=== PATIENT | female | born 1965 | race Caucasian/White ===

== ENCOUNTER 2021-02-24 04:56 | Inpatient (IN) ==
--- NOTE | 2021-01-21 08:53 | PAT Medication Instructions ---
Medication Instructions Date of Service January 21, 2021 Home Medications cholecalciferol (vitamin D3) [Vitamin D3] 50 mcg PO QAM lisinopril-hydrochlorothiazide 1 tab PO QAM naproxen sodium [Aleve] 440 mg PO BID PRN turmeric-turmeric ext-pepper 2 cap PO QAM ASK your surgeon for instructions naproxen sodium [Aleve] 440 mg PO BID PRN STOP taking 2 weeks before surgery (or as soon as possible if surgery is within 2 weeks) turmeric-turmeric ext-pepper 2 cap PO QAM DO NOT take the morning of surgery cholecalciferol (vitamin D3) [Vitamin D3] 50 mcg PO QAM lisinopril-hydrochlorothiazide 1 tab PO QAM Other Notes If you have any questions please call us at [phone] or [phone] or [phone] or [phone]
--- NOTE | 2021-01-25 11:55 | Anesthesiology Consultation ---
Date of Service January 25, 2021 Assessment & Plan (1) Encounter for pre-operative examination: COVID screening: Per assessment on 01/25: Travel screen negative, no known COVID- 19 positive contacts or current COVID-19 related symptoms. Surgeon arranging preop COVID testing (scheduled 02/19; [facility]). Awaiting results. Chart Review Chart Review: Acceptable Risk for Surgery and Patient seen in Pre Admission T esting Teaching & Discussion Pre-Anesthesia Teaching/Discussion Notes: Instructed NPO after midnight before surgery,except medications with 15 cc of water. Medication instructions provided according to the PAT guidelines. History Surgery Operation Date: 02/24/21 07:15 Proposed Procedures p Left Total Knee Arthroplasty - Yanick White MD Height/Weight Height: 5 ft 2.5 in Weight: 107.8 kg Allergies Allergy/AdvReac Type Severity Reaction Status Date / Time No Known Allergies Allergy Verified 01/20/21 11:19 Medications Home Medications Medication Instructions Recorded Confirmed Last Taken cholecalciferol (vitamin D3) 50 mcg PO QAM 01/20/21 01/20/21 Unknown [Vitamin D3] lisinopril-hydrochlorothiazide 1 tab PO QAM 01/20/21 01/20/21 Unknown naproxen sodium [Aleve] 440 mg PO BID PRN 01/20/21 01/20/21 Unknown turmeric-turmeric ext-pepper 2 cap PO QAM 01/20/21 01/20/21 Unknown Past Medical History Medical History Hyperlipidemia Borderline Hypertension Morbid obesity Exercise / Class Metabolic Activity II 4-5 Yardwork/Stairs/Walk up hill Past Family History Family History Brother Family history of diabetes mellitus Mother Family history of diabetes mellitus Family hx of colon cancer Past Surgical History Surgical History History of colonoscopy History of tooth extraction WTE Past Anesthesia History No Hx of Anesthesia Complications Twin- "slow to wake" History of PONV No Hx of PONV and No Hx of Motion Sickness Social History Smoking Status: Former smoker Do You Dip or Chew Tobacco: No Smoking End Date: 2006 Hx Alcohol Use: Yes Alcohol type: beer, wine and hard liquor alcohol intake frequency: a few times a month Hx Substance Use: No Review of Systems + snoring (when allergies worsening). Rare witnessed apnea events by . Patient denies chest pain, shortness of breath, dyspnea on exertion, fever, chills, cough, wheezing, palpitations. Physical Exam Vital Signs VITALS BP 121/78 P 77 TEMP 98.5 SP02 96%RA RESP 18 PHYSICAL Full cervical extension range of motion. Full TMJ range of motion. TMD 4 finger breaths Mallampati Score 1 Dentition: intact Lungs: clear throughout to auscultation Cardiac: regular rate and rhythm, no murmurs noted Spine: normal Carotid arteries: negative bruit Extremities: no edema Very short neck Testing Laboratory Results 01/25/21 12:16 01/25/21 12:16 PT 10.1 Seconds (9.0-12.0) 01/25/21 12:16 INR 1.0 (0.9-1.1) 01/25/21 12:16 APTT 24.2 Seconds (21.0-31.0) 01/25/21 12:16 Hemoglobin A1c 5.7 % (4.5-5.6) H 01/25/21 12:16 Urine Color Yellow 01/25/21 12:16 Urine Appearance Clear (Clear) 01/25/21 12:16 Urine pH 5.0 (4.5-7.5) 01/25/21 12:16 Ur Specific [place] 1.018 (1.000-1.030) 01/25/21 12:16 Urine Protein Negative (Negative) 01/25/21 12:16 Urine Glucose (UA) Negative (Negative) 01/25/21 12:16 Urine Ketones Negative (Negative) 01/25/21 12:16 Urine Nitrite Negative (Negative) 01/25/21 12:16 Ur Leukocyte Esterase Negative (Negative) 01/25/21 12:16 Blood Type A Positive 01/25/21 12:16 Antibody Screen NEGATIVE 01/25/21 12:16 Electrocardiogram Date: 01/25/21 Findings: + NSR @ (74) Chest X-Ray Date: 01/25/21 FINDINGS: Lung volumes are normal. Lungs are clear. There is no pneumothorax or pleural effusion. Cardiac size is normal. Mediastinal contours are normal. There is no evidence for pulmonary edema. There is slight elevation/eventration of the right hemidiaphragm. IMPRESSION: No acute cardiopulmonary findings.
[2021-01-25 12:41] LABS: Appearance Urine Clear (Clear); Basophils # (auto) 0.04 K/uL (0-0.2); Basophils % (auto) 0.5 %; Bilirubin Urine Negative (Negative); Blood Urine Negative (Negative); Color Urine Yellow; Eosinophils # (auto) 0.31 K/uL (0-0.5); Eosinophils % (auto) 3.9 %; Glucose Urine UA Negative (Negative); Hematocrit (blood only) 38.8 % (37-47); Immature Granulocytes # (auto) 0.03 K/uL (0.00-0.02); Immature Granulocytes % (auto) 0.4 %; Ketones Urine Negative (Negative); Leukocyte Esterase Urine Negative (Negative); Lymphocytes # (auto) 2.13 K/uL (1.2-3.4); Lymphocytes % (auto) 26.7 %; Mean Corpuscular Hgb Conc 33.5 g/dL (32-36); Mean Corpuscular Volume 89.6 fL (80-100); Mean Platelet Volume 9.6 fL (7.4-10.4); Monocytes % (auto) 6.3 %; Neutrophils # (auto) 4.98 K/uL (1.4-6.5); Neutrophils % (auto) 62.2 %; Nitrite Urine Negative (Negative); Platelet Count 390 K/uL (130-400); Protein Urine Negative (Negative); RDW Coefficient of Variation 12.8 % (11.5-14.5); RDW Standard Deviation 41.8 fL (36.4-46.3); Red Blood Count 4.33 M/uL (4.2-5.4); Specific Gravity Urine 1.018 (1.000-1.030); Urobilinogen Urine Negative (Negative); White Blood Count 7.99 K/uL (4.8-10.8)
--- NOTE | 2021-01-25 12:47 | XRay Report ---
XR chest Pre-admission PA/Lat CLINICAL HISTORY: Preoperative evaluation. COMPARISON STUDY: No previous studies for comparison. FINDINGS: Lung volumes are normal. Lungs are clear. There is no pneumothorax or pleural effusion. Car diac size is normal. Mediastinal contours are normal. There is no evidence for pulmonary edema. There is slight elevation/eventration of the right hemidiaphragm. IMPRESSION: No acute cardiopulmonary findings. ACT 112: Negative or not required by law. Electronically signed by: Demarcus Rivas M.D. 01/25/2021 12:46 PM
[2021-01-25 12:51] LABS: Partial Thromboplastin Ratio 0.9; Partial Thromboplastin Time 24.2 Seconds (21.0-31.0); Prothrombin Time 10.1 Seconds (9.0-12.0)
[2021-01-25 13:35] LABS: Estimated Average Glucose 117 mg/dl; Hemoglobin A1C 5.7 % (4.5-5.6)
[2021-01-25 15:32] LABS: Albumin Level 3.8 gm/dl (3.4-5.0); BUN Creatinine Ratio 27.7 (10-20); Calcium 9.1 mg/dl (8.5-10.1); Creatinine Clr Calc Pharmacy 114.9 ml/min; Est GFR (African American) 115.4; Est GFR (Non-African American) 99.6; Potassium 4.5 mmol/L (3.5-5.1)
--- NOTE | 2021-01-26 05:58 | Electrocardiogram Report ---
Test Reason : Blood Pressure : / mmHG Vent. Rate : 074 BPM Atrial Rate : 074 BPM P-R Int : 164 ms QRS Dur : 084 ms QT Int : 378 ms P-R-T Axes : 050 073 064 degrees QTc Int : 419 ms Normal sinus rhythm Normal ECG No previous ECGs available Confirmed by Rob Tierney ([id number]) on 01/26/2021 5:57:39 AM Referred By: Yanick White Confirmed By:Rob Tierney
--- NOTE | 2021-02-22 21:34 | History & Physical Report ---
Date of Service February 22, 2021 Assessment & Plan (1) Primary osteoarthritis of left knee: Treatment options discussed with patient. She has failed conservative measures as above. She would like to proceed with surgical management. Risks, benefits and alternatives to surgery including but not limited to infection, DVT, pain, stiffness, need for revision surgery, damage to blood vessels, damage to nerves, PE, , were discussed with the patient and they wish to proceed. Plan for left total knee arthroplasty at [facility] on 02/24/21. Will plan on ASA 81mg BID x 1 mo for DVT prophylaxis. Will plan on OPPT post discharge. All questions answered. F/u post operatively. History of Present Illness Chief Complaint: Left knee pain Primary Care Provider: Aayush Amado 55 year old female with PMHx significant for HTN presents with ongoing left knee pain. Pain interfering with her daily activities. She has severe arthritic change left knee. She has failed conservative management including cortisone and viscosupplementation, exercise program, anti-inflammatories. She would like to proceed with knee replacement. Patient denies headaches, sweats, fevers, chills, double vision, blurred vision, cough, sore throat, dysphagia, chest pain, sob, wheezing, n/v/d/c, numbness, tingling, fatigue, urinary symptoms, mood disorders. ROS positive for left knee pain and stiffness. Allergies Allergy/AdvReac Type Severity Reaction Status Date / Time No Known Allergies Allergy Verified 01/20/21 11:19 Home Medications Medication Instructions Recorded Confirmed Type cholecalciferol (vitamin D3) 50 mcg PO QAM 01/20/21 01/20/21 History [Vitamin D3] lisinopril-hydrochlorothiazide 1 tab PO QAM 01/20/21 01/20/21 History naproxen sodium [Aleve] 440 mg PO BID PRN 01/20/21 01/20/21 History turmeric-turmeric ext-pepper 2 cap PO QAM 01/20/21 01/20/21 History Past Med/Surg History Medical History Hyperlipidemia Borderline Hypertension Morbid obesity Surgical History History of colonoscopy History of tooth extraction WTE Family History Brother Family history of diabetes mellitus Mother Family history of diabetes mellitus Family hx of colon cancer Social History Smoking Status: Former smoker Smoking End Date: Quit 2006; Second Hand Exposure: No; Do You Dip or Chew Tobacco: No; Hx Alcohol Use: Yes Alcohol type: beer, wine and hard liquor Hx Substance Use: No Preferred Language: Japanese Communication Ability: Effective 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 Beliefs That Will Affect Care: None Current Living Situation: Spouse Other Information That Helps Us Care for You: No Feels Safe at Home: Yes Safety Concerns: Feels Safe At This Time Assistive Devices: Glasses Review of Systems All systems reviewed & are unremarkable except as noted in HPI & below Physical Exam Constitutional: well developed and well nourished; no acute distress Eyes: PERRL, conjunctivae normal, anicteric sclerae ENMT: external ear and nose normal, oropharynx normal Neck: trachea midline, no thyromegaly Respiratory: normal respiratory effort, lungs clear to auscultation Cardiovascular: RRR, no murmur, no edema Musculoskeletal: Left knee: Tenderness medial compartment and medial patellar facet with mild effusion. Painful ROM, ROM 10-100 degrees. Varus alignment. Stable to valgus and varus stress. Positive Joan's. Skin: no rashes, warm and dry Neurologic: patellar DTR's 2+ bilat, sensation intact Psychiatric: A+Ox3, euthymic affect Results & Data ([facility]) Laboratory Results Lab Results 01/25/21 01/25/21 01/25/21 Range/Units 12:16 12:16 12:16 WBC 7.99 (4.8-10.8) K/uL RBC 4.33 (4.2-5.4) M/uL Hgb 13.0 (12.0-16.0) g/dL Hct 38.8 (37-47) % MCV 89.6 (80-100) fL MCH 30.0 (25-34) pg MCHC 33.5 (32-36) g/dL RDW Std Deviation 41.8 (36.4-46.3) fL RDW Coeff of Brooke 12.8 (11.5-14.5) % Plt Count 390 (130-400) K/uL MPV 9.6 (7.4-10.4) fL Immature Gran % (Auto) 0.4 % Neut % (Auto) 62.2 % Lymph % (Auto) 26.7 % [place] % (Auto) 6.3 % Eos % (Auto) 3.9 % Baso % (Auto) 0.5 % Neut # (Auto) 4.98 (1.4-6.5) K/uL Lymph # (Auto) 2.13 (1.2-3.4) K/uL [place] # (Auto) 0.50 (0.11-0.59) K/uL Eos # (Auto) 0.31 (0-0.5) K/uL Baso # (Auto) 0.04 (0-0.2) K/uL Immature Gran # (Auto) 0.03 H (0.00-0.02) K/uL PT 10.1 (9.0-12.0) Seconds INR 1.0 (0.9-1.1) APTT 24.2 (21.0-31.0) Seconds PTT Ratio 0.9 Sodium (136-145) mmol/L Potassium (3.5-5.1) mmol/L Chloride (98-107) mmol/L Carbon Dioxide (21-32) mmol/L Anion Gap (3-11) BUN (7-18) mg/dl Creatinine (0.6-1.2) mg/dl Est Cr Clr Drug Dosing ml/min Est GFR ( Amer) Est GFR (Non-Af Amer) BUN/Creatinine Ratio (10-20) Glucose (70-99) mg/dl Estimat Average Glucose mg/dl Hemoglobin A1c (4.5-5.6) % Calcium (8.5-10.1) mg/dl Albumin (3.4-5.0) gm/dl Urine Color Urine Appearance (Clear) Urine pH (4.5-7.5) Ur Specific [place] (1.000-1.030) Urine Protein (Negative) Urine Glucose (UA) (Negative) Urine Ketones (Negative) Urine Blood (Negative) Urine Nitrite (Negative) Urine Bilirubin (Negative) Urine Urobilinogen (Negative) Ur Leukocyte Esterase (Negative) Blood Type A Positive Antibody Screen NEGATIVE 01/25/21 01/25/21 01/25/21 Range/Units 12:16 12:16 12:16 WBC (4.8-10.8) K/uL RBC (4.2-5.4) M/uL Hgb (12.0-16.0) g/dL Hct (37-47) % MCV (80-100) fL MCH (25-34) pg MCHC (32-36) g/dL RDW Std Deviation (36.4-46.3) fL RDW Coeff of Brooke (11.5-14.5) % Plt Count (130-400) K/uL MPV (7.4-10.4) fL Immature Gran % (Auto) % Neut % (Auto) % Lymph % (Auto) % [place] % (Auto) % Eos % (Auto) % Baso % (Auto) % Neut # (Auto) (1.4-6.5) K/uL Lymph # (Auto) (1.2-3.4) K/uL [place] # (Auto) (0.11-0.59) K/uL Eos # (Auto) (0-0.5) K/uL Baso # (Auto) (0-0.2) K/uL Immature Gran # (Auto) (0.00-0.02) K/uL PT (9.0-12.0) Seconds INR (0.9-1.1) APTT (21.0-31.0) Seconds PTT Ratio Sodium 139 (136-145) mmol/L Potassium 4.5 (3.5-5.1) mmol/L Chloride 105 (98-107) mmol/L Carbon Dioxide 30 (21-32) mmol/L Anion Gap 4.0 (3-11) BUN 18 (7-18) mg/dl Creatinine 0.63 (0.6-1.2) mg/dl Est Cr Clr Drug Dosing 114.9 ml/min Est GFR ( Amer) 115.4 Est GFR (Non-Af Amer) 99.6 BUN/Creatinine Ratio 27.7 H (10-20) Glucose 112 H (70-99) mg/dl Estimat Average Glucose 117 mg/dl Hemoglobin A1c 5.7 H (4.5-5.6) % Calcium 9.1 (8.5-10.1) mg/dl Albumin 3.8 (3.4-5.0) gm/dl Urine Color Yellow Urine Appearance Clear (Clear) Urine pH 5.0 (4.5-7.5) Ur Specific [place] 1.018 (1.000-1.030) Urine Protein Negative (Negative) Urine Glucose (UA) Negative (Negative) Urine Ketones Negative (Negative) Urine Blood Negative (Negative) Urine Nitrite Negative (Negative) Urine Bilirubin Negative (Negative) Urine Urobilinogen Negative (Negative) Ur Leukocyte Esterase Negative (Negative) Blood Type Antibody Screen Diagnostic Findings Left knee: Severe tricompartmental arthritic change with bone on bone medial compartment, subluxation of femur, bone loss medial compartment
[2021-02-24] MEDS ORDERED: TRANEXAMIC ACID 1,000 MG **IV Pre-op IV SCH (06:00)
[2021-02-24] MEDS ORDERED: GABAPENTIN 600 MG DOSE PO SCH (06:00)
[2021-02-24] MEDS ORDERED: dexAMETHasone 4 MG TAB PO SCH (06:00)
[2021-02-24] MEDS ORDERED: ceFAZolin 2000MG 2,000 MG/15 ML SYR IV SCH (06:00)
[2021-02-24] MEDS ORDERED: FAMOTIDINE 20 MG TAB PO SCH (06:00)
[2021-02-24] MEDS ORDERED: TRANEXAMIC ACID 1,000 MG **IV Intra-op IV SCH (06:00)
[2021-02-24] MEDS ORDERED: LR 500ML BOLUS, THEN 15ML/HR IV SCH (06:00)
[2021-02-24] MEDS ORDERED: ROPIVACAINE 0.5% HCL/PF 150 MG, BUPIVACAINE 0.75% MPF 20 ML, EPINEPHrine 30MG/30ML (OR ... INSTIL SCH (06:00)
[2021-02-24] MEDS ORDERED: METOCLOPRAMIDE HCL 10 MG TABLET PO SCH (06:00)
[2021-02-24] MEDS ORDERED: CeleBREX 200 MG CAP PO SCH (06:00)
[2021-02-24] MEDS ORDERED: ACETAMINOPHEN 500 MG TAB PO SCH (06:00)
[2021-02-24] MEDS ORDERED: ROPIVACAINE 0.5% 5 MG/ML 30 ML VIAL ONE (06:24)
[2021-02-24] MEDS ORDERED: BUPIVACAINE 0.5 % 5 MG/1 ML PF 10ML VIAL ONE (06:24)
[2021-02-24] MEDS ORDERED: EPINEPHrine INJ 1 MG/ML AMP ONE (06:24)
[2021-02-24] MEDS ORDERED: fentaNYL citrate 100 MCG/2 ML VIAL ONE (06:29)
[2021-02-24] MEDS ORDERED: MIDAZOLAM HCL 1 MG/ML 2ML VIAL ONE (06:29)
[2021-02-24] MEDS ORDERED: LIDOCAINE HCL 2% 2 ML VIAL/AMP(20MG/ML) INFIL ONE (06:29)
[2021-02-24] MEDS ORDERED: PROPOFOL IV EMULSION 10 MG/ML 20 ML VIAL IV ONE ×4 (06:29→09:31)
[2021-02-24] MEDS ORDERED: ORTHO JOINT ANESTHETIC ONE (06:32)
--- NOTE | 2021-02-24 06:50 | History & Physical Bridge Note ---
Date of Service February 24, 2021 History & Physical Bridge Note I have examined the patient, reviewed the History & Physical and in the interval since the performance of the History & Physical I have noted the following changes of clinical significance: no changes noted
[2021-02-24] MEDS ORDERED: ONDANSETRON INJ 2 MG/ML 2 ML VIAL ONE (07:23)
[2021-02-24] MEDS ORDERED: ePHEDrine sulfate 50 MG/ML AMP IV PRN (08:30)
[2021-02-24] MEDS ORDERED: ATROPINE SULFATE 0.1 MG/ML 10ML SYR IV PRN (08:30)
--- NOTE | 2021-02-24 10:04 | Post Operative Brief Note ---
Immediate Post Op Note v1 Date of Surgery February 24, 2021 Pre & Post Diagnosis Operation Date: 02/24/21 07:00 Pre-Op Diagnosis: Unilateral Primary Osteoarthritis, Left Knee, obesity BMI 42.7 Post-Op Diagnosis: Unilateral Primary Osteoarthritis, Left Knee, obesity BMI 42.7 I identified the patient and participated in the time-out.: Yes Procedure Operation Date: 02/24/21 07:00 Actual Procedures p Left Total Knee Arthroplasty(Left), lateral release, superficial wound VAC-, increased difficulty BMI 42.7 Yanick White MD Surgeon Yanick White MD Business Information Analyst Norm BONILLA Estimated Blood Loss 10 Findings Consistent with Post-Op Diagnosis Specimens Bone cuts Drains Hemovac Drain Anesthesia Type MAC Spinal Regional Complications none Disposition Accompanied Patient To Recovery: No Disposition: Recovery Room Overlapping Procedure I was immediately available: during the entire case.
--- NOTE | 2021-02-24 10:45 | Anesthesiology Progress Note ---
Date of Service February 24, 2021 Anesthesia Post Procedure Vital Signs Vital Signs: Temp Pulse Pulse Resp BP BP Pulse Ox 02/24/21 10:30 75 20 126/64 95 02/24/21 10:20 76 20 129/69 94 02/24/21 10:10 75 20 131/69 100 02/24/21 10:09 36.5 C 78 18 133/64 100 02/24/21 05:27 36.7 C 75 18 150/86 H 95 Pain Intensity Left Knee: Pain Intensity: 3 Transfer of Care Handoff Completed per policy Notes Mental Status: alert / awake / arousable Patient Amnestic to Procedure: Yes Nausea / Vomiting: adequately controlled Pain: adequately controlled Airway Patency, RR, SpO2: stable & adequate BP & HR: stable & adequate Hydration State: stable & adequate Neuraxial Anesthesia: was administered and sensory block is resolving Anesthetic Complications: no major complications apparent
--- NOTE | 2021-02-24 10:47 | XRay Report ---
XR knee LT 1 or 2V routine CLINICAL HISTORY: Postoperative evaluation. COMPARISON: None FINDINGS: Alignment of the total left knee arthroplasty is anatomic. There is no periprosthetic frac ture or unexpected radiopaque foreign body. There are drains and skin shante. A calcific/ossific den sity which projects medial to the medial femoral condyle is not acute. IMPRESSION: Expected findings following total left knee arthroplasty. ACT 112: Negative or not required by law. Electronically signed by: Demarcus Rivas M.D. 02/24/2021 10:45 AM
--- NOTE | 2021-02-24 11:00 | Operative Report ---
Post Operative Report Pre & Post Diagnosis Operation Date: 02/24/21 07:00 Pre-Op Diagnosis: Unilateral Primary Osteoarthritis, Left Knee, morbid obesity BMI 42.7 Post-Op Diagnosis: Unilateral Primary Osteoarthritis, Left Knee, morbid obesity BMI 42.7 I identified the patient and participated in the time-out.: Yes Procedure Operation Date: 02/24/21 07:00 Actual Procedures p Left Total Knee Arthroplasty(Left), lateral release, increased difficulty BMI 42.7, superficial wound VAC application- Yanick White MD Surgeon Yanick White MD Dining Service Worker Norm BONILLA Estimated Blood Loss 10 Findings Consistent with Post-Op Diagnosis Specimens Bone cuts Drains 2 Hemovac Anesthesia Type MAC Spinal Regional Complications none Disposition Accompanied Patient To Recovery: No Disposition: Recovery Room Indications 55-year female with of very severe osteoarthritis her left knee failed conservative management. Radiographs demonstrate she is a varus knee marked subluxation of the femur medial on the tibia with bone loss in the medial compartment. Description of Procedure Patient taken to the operating room the size under spinal MAC regional anesthesia. Patient was placed supine on the operating table. A pneumatic tourniquet was placed about the left obese upper thigh. The left lower extremity was prepped and draped in sterile fashion. Knee exam demonstrated 15 through 90 degrees range of motion with marked varus knee no pseudolaxity and very stiff knee. Patient also had an obese knee and upper thigh.. The leg was elevated exsanguinated with an Esmarch bandage and pneumatic tourniquet was raised to 350 millimeters of mercury. Skin incised sharply in longitudinal fashion. Subcutaneous flaps elevated. Incision was made through the medial retinaculum extending up in the mid third of the quadriceps tendon and down to the medial tibial tubercle. Intra-articular findings demonstrated very severe tricompartmental osteoarthritis [id number] in all compartments with complete stenosis of the notch and absent ACL chronic medial meniscus tear. There was significant bone loss with eburnated bone on the medial tibia with a posterior medial bone loss of the tibia.. The [employer] triathlon total knee arthroplasty system was used. To expose the knee the infrapatellar fat pad was resected. The anterior fat pad over the femur in the area of the anterior flange of the femoral component was resected. Lateral synovial bands release. The notch osteophytes were resected with a curved osteotome. This exposed the PCL which was released and later resected. The meniscal remnants were resected. There was a large osteophyte around the femur adjacent to the medial collateral ligament that was removed. Multiple loose bodies were removed. The femur was exposed. An intramedullary drill hole was made into the canal. A guide dannielle was placed. Distal femoral cutting guide was adjusted to resect a 5 degree valgus cut with 10 millimeters distal femur resected. The knee was extended and a subperiosteal peel lateral release was performed around the patella. Patella width was measured and width was reproduced using a freehand cut technique and a 33 x 9 symmetrical patella component. The 3 drill holes were made and the excess lateral facet was beveled off to prevent any impingement. Attention was taken back to the femur which was exposed with retractors and the femoral sizing guide was pinned in position. The drill holes were placed in 3 of external rotation to match epicondylar axis. Femur sized for a 5 component. The 4-in-1 cutting block was placed and then the anterior posterior and chamfer cuts are made. The tibia was then subluxed. The external tibial cutting guide was just to make a perpendicular cut to the long axis of the tibia right at the level of the most deficient bone loss side. A lamina tenant relations coordinator was used and the flexion extension gaps were balanced. This required medial posterior medial release small posterior lateral release all posterior osteophytes removed. More loose bodies were identified and resected. All meniscal remnants were resected. The tibia exposed and the trial tibial component size 4 was externally rotated in line with the tibial tubercle and pinned in position. The punch drill for stem was used. The notch cutting device was centered appropriately and the femoral notch cut was made. Trimble baseplate with short stubby stem was chosen for the tibia. The femoral trial was inserted. Trial tibial inserts were placed and size 13 posterior stabilized gave balanced ligaments through flexion and extension. Patella tracking was assessed. The patella tracked some slight mid flexion liftoff and tilt so I did a lateral release leaving the synovium intact and the patella tracked centrally.. The trial components were then removed and the orthomix anesthetic cocktail was injected per protocol. The knee was then copiously irrigated with pulsatile lavage antibiotic solution. Final components were then cemented with Simplex cement. Final components were Nas triathlon posterior stabilized size left femoral component opponent, 4 universal tibial baseplate, size 413 mm thick posterior stabilized tibial bearing insert, and the S 33 x 9 patella.. While the cement cured the Betadine soak was used per prot ocol. After cement cured further pulsatile lavage irrigation performed and 2 Hemovac drains were brought out laterally. The quadriceps tendon and medial retinaculum were closed with figure of 8 #1 Vicryl sutures. The knee was taken through full range of motion and the repair was secure. Range of motion was 0 through 125 degrees. Tenderness was let down now and some superficial bleeders were cauterized. The subcutaneous tissues were closed with 2-0 Vicryl sutures. Skin was closed with shante. A dulce and Acticoat superficial wound VAC was applied. Patient procedure well. Norm BONILLA was my physician accountant assistant who assisted in patient positioning prepping and draping,leg positioning ,soft tissue retraction and instrument management and participated in the closing and application of superficial wound VAC and will participate in postoperative care of the patient. The patient tolerated the procedure well. I attest to the content of the Intraoperative Record and any orders documented therein. Any exceptions are noted below.
[2021-02-24] MEDS ORDERED: NALOXONE HCL 0.4 MG/1 ML VIAL/CARP IV PRN (11:12)
[2021-02-24] MEDS ORDERED: bisacodyL 10 MG SUPP PR PRN (11:12)
[2021-02-24] MEDS ORDERED: MAGNESIUM HYDROXIDE SUSP 30 ML UDC PO PRN (11:12)
[2021-02-24] MEDS ORDERED: METOCLOPRAMIDE HCL INJ 5 MG/ML 2 ML VIAL IV PRN (11:12)
[2021-02-24] MEDS ORDERED: HYDROmorphone INJ 0.5 MG/0.5 ML SYR IV PRN (11:12)
[2021-02-24] MEDS ORDERED: ONDANSETRON INJ 2 MG/ML 2 ML VIAL IV PRN (11:12)
[2021-02-24] MEDS: SODIUM CHLORIDE 0.9% 1000ML 1,000 ML IV SCH ×2 (11:32→21:28)
--- NOTE | 2021-02-24 11:41 | Hospitalist Consultation ---
Date of Consultation February 24, 2021 Assessment & Plan (1) Hypertension: Hold parameters placed on her usual antihypertensives Lisinopril 10 mg p.o. every morning (hold if creatinine > 1.5) Hydrochlorothiazide 12.5 mg p.o. every morning (hold if systolic blood pressure <120) (2) Primary osteoarthritis of left knee: S/p left total knee arthroplasty performed by Dr. White [02/24/21] Thank you for this consultation. We will review patient tomorrow with a.m. labs and likely can sign off at that time. History of Present Illness Reason for Consultation: Medical Management Attending Physician: Yanick White MD History of Present Illness Kallie Beckford is a 55 year old female who presents for elective left total knee arthroplasty for osteoarthritis performed by Dr. White today [02/24/2021]. She is doing well postoperatively and has no acute concerns at this time. Chronic medical conditions: Hypertension - reportedly well controlled on lisinopril/hydrochlorothiazide She denies ever having a heart attack or stroke. No chest pain or shortness of breath on exertion. Allergies Allergy/AdvReac Type Severity Reaction Status Date / Time No Known Allergies Allergy Verified 02/24/21 05:30 Home Medications Medication Instructions Recorded Confirmed Type cholecalciferol (vitamin D3) 50 mcg PO QAM 01/20/21 02/24/21 History [Vitamin D3] lisinopril-hydrochlorothiazide 1 tab PO QAM 01/20/21 02/24/21 History naproxen sodium [Aleve] 440 mg PO BID PRN 01/20/21 02/24/21 History turmeric-turmeric ext-pepper 2 cap PO QAM 01/20/21 02/24/21 History Patient History Medical History (Updated 02/24/21 @ 12:41 by Mina Marcus MD) Hyperlipidemia Borderline Hypertension Morbid obesity Surgical History History of colonoscopy History of tooth extraction WTE Family History Brother Family history of diabetes mellitus Mother Family history of diabetes mellitus Family hx of colon cancer Social History Smoking Status: Former smoker Smoking End Date: Quit 2006; Second Hand Exposure: No; Do You Dip or Chew Tobacco: No; Hx Alcohol Use: Yes Alcohol type: beer, wine and hard liquor Hx Substance Use: No Preferred Language: Scottish Communication Ability: Effective Hvac Maintenance Technician Required: No Beliefs That Will Affect Care: None Current Living Situation: Spouse Other Information That Helps Us Care for You: No Feels Safe at Home: Yes Safety Concerns: Feels Safe At This Time Assistive Devices: Walker Review of Systems Review of Systems: All systems reviewed & are unremarkable except as noted in HPI & below Physical Exam Constitutional: WD/WN, vitals as above Respiratory: normal respiratory effort, lungs clear to auscultation Cardiovascular: RRR, no murmur, no edema Gastrointestinal (Abdomen): normal bowel sounds, soft, nontender, no hepatosplenomegaly Musculoskeletal: Left foot NV intact Skin: no rashes, warm and dry Neurologic: awake; not confused Psychiatric: A+Ox3, euthymic affect Results & Data Results & Data ([facility]) Vital Signs (Past 12 Hours) Vital Signs Temp Pulse Pulse Resp BP BP Pulse Ox 02/24/21 11:28 36.4 C L 76 15 108/54 L 96 02/24/21 11:04 36.2 C L 72 16 103/65 94 02/24/21 10:50 74 18 111/74 95 02/24/21 10:40 36.2 C L 73 18 111/63 97 02/24/21 10:30 75 20 126/64 95 02/24/21 10:20 76 20 129/69 94 02/24/21 10:10 75 20 131/69 100 02/24/21 10:09 36.5 C 78 18 133/64 100 02/24/21 05:27 36.7 C 75 18 150/86 H 95 PG Care Time/CCT Total # of Minutes Spent Total Time Spent with Patient: Total time spent is greater than 50% in coordination of care (as documented) at patient's floor/unit and/or counseling patient: Coding Level of Care Code 17468 Inpt Consult Level 3 Diagnoses Hypertension I10 Primary osteoarthritis of left knee M17.12
[2021-02-24] MEDS: ACETAMINOPHEN 500 MG TAB PO SCH ×2 (13:29→21:53)
[2021-02-24] MEDS: ceFAZolin 2000MG 2,000 MG/15 ML SYR IV SCH ×2 (17:02→23:00)
[2021-02-24] MEDS: DOCUSATE SODIUM 100 MG CAP PO SCH (19:45)
[2021-02-24] MEDS ORDERED: SENNA 8.6 MG TAB PO SCH (21:00)
[2021-02-25] MEDS: ACETAMINOPHEN 500 MG TAB PO SCH ×2 (05:57→13:20)
[2021-02-25 07:11] LABS: Hematocrit (blood only) 32.5 % (37-47); Hemoglobin 10.9 g/dL (12.0-16.0); Mean Corpuscular Hemoglobin 30.2 pg (25-34); Mean Corpuscular Hgb Conc 33.5 g/dL (32-36); Mean Platelet Volume 9.7 fL (7.4-10.4); Platelet Count 355 K/uL (130-400); RDW Coefficient of Variation 12.9 % (11.5-14.5); RDW Standard Deviation 42.4 fL (36.4-46.3); Red Blood Count 3.61 M/uL (4.2-5.4); White Blood Count 12.83 K/uL (4.8-10.8)
--- NOTE | 2021-02-25 07:15 | Orthopedic Progress Note ---
Date of Service February 25, 2021 Assessment & Plan (1) Primary osteoarthritis of left knee: POD#1 Left TKA -PT/OT -Pain management as written -DVT prophylaxis-Xarelto 10mg, SCDs, TEDs -AM labs pending -D/c planning-home with OPPT if PT goes well and pending labs. Admission and Anticipated Discharge Date Admission Date: February 24, 2021 Subjective Patient resting in bed comfortably. Doing well this morning, pain well controlled. No complaints. Review of Systems Review of Systems: All systems reviewed & are unremarkable except as noted in HPI & below Physical Exam Physical Exam: Left knee: Dressing is c/d/i. Toes mobile. No calf tenderness. Good dorsiflexion. Distally n/v status and sensation intact. Constitutional: well developed and well nourished; no acute distress Results & Data ([facility]) Vital Signs (Past 12 Hours) Vital Signs Temp Pulse Resp BP Pulse Ox 02/25/21 04:00 36.4 C L 74 19 124/70 96 02/24/21 23:58 37.0 C 74 18 105/62 92
[2021-02-25 07:43] LABS: BUN Creatinine Ratio 24.3 (10-20); Calcium 8.4 mg/dl (8.5-10.1); Creatinine Clr Calc Pharmacy 116.6 ml/min; Est GFR (Non-African American) 100.1 ml/min; Potassium 4.1 mmol/L (3.5-5.1)
[2021-02-25] MEDS: DOCUSATE SODIUM 100 MG CAP PO SCH (08:49)
[2021-02-25] MEDS: oxyCODONE HCL IR 5 MG TAB (IMMEDIATE RELEASE) PO PRN ×2 (08:53→13:20)
[2021-02-25] MEDS ORDERED: CHOLECALCIFEROL 1,000 UNITS 25 MCG TAB PO SCH (09:00)
[2021-02-25] MEDS ORDERED: LISINOPRIL/HCTZ 10/12.5MG TAB PO SCH (09:00)
[2021-02-25] MEDS ORDERED: lisinopril 10 MG TAB PO SCH (09:00)
[2021-02-25] MEDS ORDERED: MULTIVITAMIN TAB PO SCH (09:00)
[2021-02-25] MEDS ORDERED: RIVAROXABAN 10 MG TABLET PO SCH (09:00)
[2021-02-25] MEDS ORDERED: hydroCHLOROthiazide 25 MG TAB PO SCH (09:00)
--- NOTE | 2021-02-27 17:53 | Discharge Summary ---
Date of Service February 27, 2021 Admission HPI Per Admitting Provider 55 year old female with PMHx significant for HTN presents with ongoing left knee pain. Pain interfering with her daily activities. She has severe arthritic change left knee. She has failed conservative management including cortisone and viscosupplementation, exercise program, anti-inflammatories. She would like to proceed with knee replacement. Patient denies headaches, sweats, fevers, chills, double vision, blurred vision, cough, sore throat, dysphagia, chest pain, sob, wheezing, n/v/d/c, numbness, tingling, fatigue, urinary symptoms, mood disorders. ROS positive for left knee pain and stiffness. Admission Exam Per Admitting Provider Constitutional: well developed and well nourished; no acute distress Eyes: PERRL, conjunctivae normal, anicteric sclerae ENMT: external ear and nose normal, oropharynx normal Neck: trachea midline, no thyromegaly Respiratory: normal respiratory effort, lungs clear to auscultation Cardiovascular: RRR, no murmur, no edema Musculoskeletal: Left knee: Tenderness medial compartment and medial patellar facet with mild effusion. Painful ROM, ROM 10-100 degrees. Varus alignment. Stable to valgus and varus stress. Positive Jaon's. Skin: no rashes, warm and dry Neurologic: patellar DTR's 2+ bilat, sensation intact Psychiatric: A+Ox3, euthymic affect Principal Diagnosis Left knee osteoarthritis Discharge Exam Constitutional well developed and well nourished; no acute distress Eyes PERRL, conjunctivae normal, anicteric sclerae ENMT external ear and nose normal, oropharynx normal Neck trachea midline, no thyromegaly Respiratory normal respiratory effort, lungs clear to auscultation Cardiovascular RRR, no murmur, no edema Skin no rashes, warm and dry Neurologic patellar DTR's 2+ bilat, sensation intact Psychiatric A+Ox3, euthymic affect Discharge Data Allergies Allergy/AdvReac Type Severity Reaction Status Date / Time No Known Allergies Allergy Verified 02/24/21 05:30 Consultations 02/19/21 16:24 Consult Hospitalist Routine Procedures Performed Operation Date: 02/24/21 07:00 Actual Procedures p Left Total Knee Arthroplasty(Left) - Yanick White MD Ordered Studies 02/24/21 05:00 US - OR guided needle placemen Routine Hospital Course (1) Primary osteoarthritis of left knee: Patient presented for same day admission following left total knee arthroplasty on 02/24/21. She tolerated procedure well. The Patient had an uneventful hospital course. Post-operatively, her activity was progressed and well tolerated. They participated in PT with ambulation distance of 150 feet. ROM of operative knee reached 80 degrees. Labs remained stable- lowest hemoglobin recorded: 10.9. Dr. Mina Marcus of medical service was consulted for medical management during admission. Pain controlled on oral medications. Please refer to daily progress notes and PT notes for complete details. After exam on 02/25/21, patient was felt to be stable for discharge home with plans on attending outpatient PT. Patient will f/u in the office in about 2 weeks for further evaluation including x-rays and incision check, sooner if having any issues or concerns. POD#1 Left TKA -PT/OT -Pain management as written -DVT prophylaxis-Xarelto 10mg, SCDs, TEDs -AM labs pending -D/c planning-home with OPPT if PT goes well and pending labs. Lab Results 01/25/21 01/25/21 01/25/21 Range/Units 12:16 12:16 12:16 WBC 7.99 (4.8-10.8) K/uL RBC 4.33 (4.2-5.4) M/uL Hgb 13.0 (12.0-16.0) g/dL Hct 38.8 (37-47) % MCV 89.6 (80-100) fL MCH 30.0 (25-34) pg MCHC 33.5 (32-36) g/dL RDW Std Deviation 41.8 (36.4-46.3) fL RDW Coeff of Brooke 12.8 (11.5-14.5) % Plt Count 390 (130-400) K/uL MPV 9.6 (7.4-10.4) fL Immature Gran % (Auto) 0.4 % Neut % (Auto) 62.2 % Lymph % (Auto) 26.7 % Camp % (Auto) 6.3 % Eos % (Auto) 3.9 % Baso % (Auto) 0.5 % Neut # (Auto) 4.98 (1.4-6.5) K/uL Lymph # (Auto) 2.13 (1.2-3.4) K/uL Camp # (Auto) 0.50 (0.11-0.59) K/uL Eos # (Auto) 0.31 (0-0.5) K/uL Baso # (Auto) 0.04 (0-0.2) K/uL Immature Gran # (Auto) 0.03 H (0.00-0.02) K/uL PT 10.1 (9.0-12.0) Seconds INR 1.0 (0.9-1.1) APTT 24.2 (21.0-31.0) Seconds PTT Ratio 0.9 Sodium (136-145) mmol/L Potassium (3.5-5.1) mmol/L Chloride (98-107) mmol/L Carbon Dioxide (21-32) mmol/L Anion Gap (3-11) BUN (7-18) mg/dl Creatinine (0.6-1.2) mg/dl Est Cr Clr Drug Dosing ml/min Est GFR ( Amer) Est GFR (Non-Af Amer) BUN/Creatinine Ratio (10-20) Glucose (70-99) mg/dl Estimat Average Glucose mg/dl Hemoglobin A1c (4.5-5.6) % Calcium (8.5-10.1) mg/dl Albumin (3.4-5.0) gm/dl Urine Color Urine Appearance (Clear) Urine pH (4.5-7.5) Ur Specific [place] (1.000-1.030) Urine Protein (Negative) Urine Glucose (UA) (Negative) Urine Ketones (Negative) Urine Blood (Negative) Urine Nitrite (Negative) Urine Bilirubin (Negative) Urine Urobilinogen (Negative) Ur Leukocyte Esterase (Negative) COVID-19 Eval Order SARS-CoV-2, RNA, NAAT (NEGATIVE) Blood Type A Positive Antibody Screen NEGATIVE 01/25/21 01/25/21 01/25/21 Range/Units 12:16 12:16 12:16 WBC (4.8-10.8) K/uL RBC (4.2-5.4) M/uL Hgb (12.0-16.0) g/dL Hct (37-47) % MCV (80-100) fL MCH (25-34) pg MCHC (32-36) g/dL RDW Std Deviation (36.4-46.3) fL RDW Coeff of Brooke (11.5-14.5) % Plt Count (130-400) K/uL MPV (7.4-10.4) fL Immature Gran % (Auto) % Neut % (Auto) % Lymph % (Auto) % Camp % (Auto) % Eos % (Auto) % Baso % (Auto) % Neut # (Auto) (1.4-6.5) K/uL Lymph # (Auto) (1.2-3.4) K/uL Camp # (Auto) (0.11-0.59) K/uL Eos # (Auto) (0-0.5) K/uL Baso # (Auto) (0-0.2) K/uL Immature Gran # (Auto) (0.00-0.02) K/uL PT (9.0-12.0) Seconds INR (0.9-1.1) APTT (21.0-31.0) Seconds PTT Ratio Sodium 139 (136-145) mmol/L Potassium 4.5 (3.5-5.1) mmol/L Chloride 105 (98-107) mmol/L Carbon Dioxide 30 (21-32) mmol/L Anion Gap 4.0 (3-11) BUN 18 (7-18) mg/dl Creatinine 0.63 (0.6-1.2) mg/dl Est Cr Clr Drug Dosing 114.9 ml/min Est GFR ( Amer) 115.4 Est GFR (Non-Af Amer) 99.6 BUN/Creatinine Ratio 27.7 H (10-20) Glucose 112 H (70-99) mg/dl Estimat Average Glucose 117 mg/dl Hemoglobin A1c 5.7 H (4.5-5.6) % Calcium 9.1 (8.5-10.1) mg/dl Albumin 3.8 (3.4-5.0) gm/dl Urine Color Yellow Urine Appearance Clear (Clear) Urine pH 5.0 (4.5-7.5) Ur Specific [place] 1.018 (1.000-1.030) Urine Protein Negative (Negative) Urine Glucose (UA) Negative (Negative) Urine Ketones Negative (Negative) Urine Blood Negative (Negative) Urine Nitrite Negative (Negative) Urine Bilirubin Negative (Negative) Urine Urobilinogen Negative (Negative) Ur Leukocyte Esterase Negative (Negative) COVID-19 Eval Order SARS-CoV-2, RNA, NAAT (NEGATIVE) Blood Type Antibody Screen 02/24/21 02/24/21 02/25/21 Range/Units 05:20 05:20 06:23 WBC 12.83 H (4.8-10.8) K/uL RBC 3.61 L (4.2-5.4) M/uL Hgb 10.9 L (12.0-16.0) g/dL Hct 32.5 L (37-47) % MCV 90.0 (80-100) fL MCH 30.2 (25-34) pg MCHC 33.5 (32-36) g/dL RDW Std Deviation 42.4 (36.4-46.3) fL RDW Coeff of Brooke 12.9 (11.5-14.5) % Plt Count 355 (130-400) K/uL MPV 9.7 (7.4-10.4) fL Immature Gran % (Auto) % Neut % (Auto) % Lymph % (Auto) % Camp % (Auto) % Eos % (Auto) % Baso % (Auto) % Neut # (Auto) (1.4-6.5) K/uL Lymph # (Auto) (1.2-3.4) K/uL Camp # (Auto) (0.11-0.59) K/uL Eos # (Auto) (0-0.5) K/uL Baso # (Auto) (0-0.2) K/uL Immature Gran # (Auto) (0.00-0.02) K/uL PT (9.0-12.0) Seconds INR (0.9-1.1) APTT (21.0-31.0) Seconds PTT Ratio Sodium (136-145) mmol/L Potassium (3.5-5.1) mmol/L Chloride (98-107) mmol/L Carbon Dioxide (21-32) mmol/L Anion Gap (3-11) BUN (7-18) mg/dl Creatinine (0.6-1.2) mg/dl Est Cr Clr Drug Dosing ml/min Est GFR ( Amer) Est GFR (Non-Af Amer) BUN/Creatinine Ratio (10-20) Glucose (70-99) mg/dl Estimat Average Glucose mg/dl Hemoglobin A1c (4.5-5.6) % Calcium (8.5-10.1) mg/dl Albumin (3.4-5.0) gm/dl Urine Color Urine Appearance (Clear) Urine pH (4.5-7.5) Ur Specific [place] (1.000-1.030) Urine Protein (Negative) Urine Glucose (UA) (Negative) Urine Ketones (Negative) Urine Blood (Negative) Urine Nitrite (Negative) Urine Bilirubin (Negative) Urine Urobilinogen (Negative) Ur Leukocyte Esterase (Negative) COVID-19 Eval [facility] SARS-[facility]-2, RNA, NAAT NEGATIVE (NEGATIVE) Blood Type Antibody Screen 02/25/21 Range/Units 06:23 WBC (4.8-10.8) K/uL RBC (4.2-5.4) M/uL Hgb (12.0-16.0) g/dL Hct (37-47) % MCV (80-100) fL MCH (25-34) pg MCHC (32-36) g/dL RDW Std Deviation (36.4-46.3) fL RDW Coeff of Brooke (11.5-14.5) % Plt Count (130-400) K/uL MPV (7.4-10.4) fL Immature Gran % (Auto) % Neut % (Auto) % Lymph % (Auto) % Camp % (Auto) % Eos % (Auto) % Baso % (Auto) % Neut # (Auto) (1.4-6.5) K/uL Lymph # (Auto) (1.2-3.4) K/uL Camp # (Auto) (0.11-0.59) K/uL Eos # (Auto) (0-0.5) K/uL Baso # (Auto) (0-0.2) K/uL Immature Gran # (Auto) (0.00-0.02) K/uL PT (9.0-12.0) Seconds INR (0.9-1.1) APTT (21.0-31.0) Seconds PTT Ratio Sodium 140 (136-145) mmol/L Potassium 4.1 (3.5-5.1) mmol/L Chloride 108 H (98-107) mmol/L Carbon Dioxide 26 (21-32) mmol/L Anion Gap 6.0 (3-11) BUN 15 (7-18) mg/dl Creatinine 0.62 (0.6-1.2) mg/dl Est Cr Clr Drug Dosing 116.6 ml/min Est GFR ( Amer) 116.0 Est GFR (Non-Af Amer) 100.1 BUN/Creatinine Ratio 24.3 H (10-20) Glucose 112 H (70-99) mg/dl Estimat Average Glucose mg/dl Hemoglobin A1c (4.5-5.6) % Calcium 8.4 L (8.5-10.1) mg/dl Albumin (3.4-5.0) gm/dl Urine Color Urine Appearance (Clear) Urine pH (4.5-7.5) Ur Specific [place] (1.000-1.030) Urine Protein (Negative) Urine Glucose (UA) (Negative) Urine Ketones (Negative) Urine Blood (Negative) Urine Nitrite (Negative) Urine Bilirubin (Negative) Urine Urobilinogen (Negative) Ur Leukocyte Esterase (Negative) COVID-19 Eval Order SARS-CoV-2, RNA, NAAT (NEGATIVE) Blood Type Antibody Screen Total Time Total Time Spent Total Time Spent (In Minutes): 20 Discharge Plan Discharge Items Patient Disposition: Home - Self-Care Reason For Visit: Unilateral Primary Ostearthritis, Left Knee Activity: Per Instructions section Non-emergency contact: Surgeon Call non-emergency contact if: you have any medication questions, your pain is not controlled, your pain is worsening, your pain is concerning for you, you have a fever, your temperature is above 101, your wound has increased redness, your wound has increased drainage and your wound pain has increased Follow-up/Referrals: Aayush Amado D.O. [Primary Care Provider] - Diet: Regular Addtl Attending Provider Instructions: ACTIVITY RECOMMENDATIONS: SELF CARE INSTRUCTIONS AFTER TOTAL KNEE REPLACEMENT A. You may need to continue a physical therapy program after discharge from the hospital. There are several options available to you. Your doctor will assist you in selecting the best one for you. 1. An out-patient facility 2 to 3 times a week for therapy or home therapy. 2. Continue working on all exercises taught to you in the hospital. Your goals should be to increase bending of your knee to 90 degrees and beyond and to fully straighten your knee. B. You may progress at your own pace from walking with a walker or crutches to a cane; then to no assistive devices. C. Make walking a part of your daily routine. Be up as much as comfortable with rest periods throughout the day. Rest with leg elevation is very important. Use the ice wrap frequently for the first 3-4 weeks. D. There are no restrictions on activities. You may ride in a car, shop, participate in tester rocket engine and all social activities. E. Wear the long elastic stockings (ERASMO hose) 20 hours a day for 2 weeks after surgery. They can be removed several times a day for laundering and for a bath. F. You may shower, no tub baths until cleared by your doctor. SPECIAL CARE INSTRUCTIONS: VERY IMPORTANT TO READ AND REVIEW A. There are a few signs you need to watch for after you are home. Call [facility] if you notice any of the followin. Increased severe knee pain. Some pain is expected especially when you exercise. 2. Increased swelling in your leg or knee; pain or swelling of the calf muscle in either lower leg. 3. Any fluid drainage from the incision. 4. Shortness of breath or chest pain. B. Please call [facility] at if you have any concerns or questions about your operation or recovery. The doctor or his nurse will return your call promptly. C. You must take antibiotics before dental work, bladder, bowel or other surgery. Your doctor will provide you with a permanent care to carry describing this precaution. IMPORTANT: * REMEMBER TO TAKE ASPIRIN, 81 MG, TWICE DAILY FOR 4 WEEKS UNLESS OTHERWISE DIRECTED. THIS IS YOUR BLOOD THINNER. * HIGH RISK PATIENTS MAY BE PRESCRIBED A STRONGER BLOOD THINNER. THIS WILL BE PROVIDED AT DISCHARGE. * CALL IF INCREASED PAIN, REDNESS, DRAINAGE OR FEVER GREATER THAT 101. * WEAR ERASMO HOSE 20 HOURS PER DAY FOR 2 WEEKS. This is a large suction dressing covering your incision. This will help pull any excess drainage from the wound and allow your incision to heal properly. You may shower with this if you can keep the unit outside of the shower. If any bleeding or leakage is noted please call your doctor's office. This will remain on your incision for 7 days and then should be removed. This can be done yourself or by the home nursing staff if applicable. The entire unit is disposable once removed. Once removed, keep incision clean and dry. If redness or drainage is noted, please call your surgeon. IF INCISION IS LEAKING THROUGH DRESSING, CALL THE OFFICE . FOLLOW UP VISIT: If appointment is not already scheduled: Please call [facility] to make a follow-up appointment for 2 weeks after your surgery at . Stand-Alone Forms: My [facility] [employer], Smoking Cessation Medications and DC Order Prescriptions: New acetaminophen 500 mg Tablet 1,000 mg PO Q8 Qty: 60 RF: 0 oxycodone 5 mg Tablet 5 - 10 mg PO .Q4h-6h MDD 6 PRN (Reason: pain) Qty: 30 RF: 0 Xarelto 10 mg Tablet 10 mg PO DAILY Qty: 30 RF: 0 Continued lisinopril-hydrochlorothiazide 10-12.5 mg Tablet 1 tab PO QAM RF: 0 cholecalciferol (vitamin D3) [Vitamin D3] 50 mcg (2,000 unit) Tablet 50 mcg PO QAM RF: 0 turmeric-turmeric ext-pepper 500-3 mg Capsule 2 cap PO QAM RF: 0 Discontinued naproxen sodium [Aleve] 220 mg Capsule 440 mg PO BID PRN (Reason: Pain) RF: 0 Discharge Orders: Discharge Order (Routine); Ordered 02/25/21 Ordered By: Tyron Cordova/Other Patient Handouts: DVT Post Op Prevention Admission Data Admit Date/Time: 02/24/21 10:28 Attending Provider: Yanick White Admit Provider: Yanick White Primary Care Provider: Aayush Amado Other Providers: Mina Child Other Interventions: Discharge Summary Assessment (RN) Last Done: 02/25/21 12:32
== END 2021-02-25 14:10 | disposition home or self-care (01) | DRG 470 ==
LOC: 3N 04:56 → ASU 04:56 → OBSVTOIN 10:28